=== PATIENT | female | born 1975 | race Caucasian/White ===

== ENCOUNTER 2016-10-09 09:12 | Day surgery (SDC) | payer BC ==
[~2016-10-09] VITALS: Ht 165.1 cm; Wt 61.5 kg
[2016-10-09] VITALS (19 sets, daily range): BP systolic 74–127; BP diastolic 57–76; PULSE 71–92; RESP 10–21; Ht 165.1 cm; Wt 61.5 kg
[~2016-10-09 09:12] MED LIST: EPHEDrine SULFATE 50 MG/5 ML SYG ONE
[2016-10-09 10:04] LABS: ADD SCAN DIFF NO
--- NOTE | 2016-10-09 10:05 | RADRPT ---
PROCEDURE: Chest x-ray CLINICAL INDICATION: Right breast neoplasm TECHNIQUE: Chest single view COMPARISON: None FINDINGS: The heart is normal in size. The pulmonary vessels are normal in caliber. The lungs are clear. Th e costophrenic angles are sharp. The visualized bony thorax is unremarkable. IMPRESSION: No acute cardiopulmonary disease. RPTAT: HH .Regan Berg MD, MD Date Time Electronically viewed and signed by .Regan Berg MD, on 10/09/2016 10:04 .W/
[2016-10-09 10:07] LABS: BASOPHILS % 0.3 % (0.0-2.0); EOSINOPHILS % 0.3 % (0.0-7.0); HEMATOCRIT 39.7 % (37.0-47.0); HEMOGLOBIN 13.4 g/dl (12.0-16.0); LYMPHOCYTES % 25.3 % (15.0-51.0); MEAN CORPUSCULAR HGB CONC 33.8 g/dl (32.0-37.0); MEAN PLATELET VOLUME 10.8 fl (7.4-10.4); MONOCYTE # 0.4 10^3/ul (0.3-0.9); MONOCYTES % 10.1 % (0.0-11.0); NEUTROPHIL # 2.5 10^3/ul (1.6-7.5); NEUTROPHILS % 63.7 % (39.0-77.0); PLATELET COUNT 226 10^3/UL (140-415); RED BLOOD COUNT 4.46 10^6/ul (4.20-5.40); RED CELL DISTRIBUTION WIDTH 13.1 % (11.5-14.5); WHITE BLOOD COUNT 3.9 10^3/ul (4.8-10.8)
[2016-10-09 10:19] LABS: ALBUMIN 4.1 g/dl (3.3-4.9)
[2016-10-09 10:21] LABS: INR 0.95; PROTIME 12.7 Sec (12.2-14.2)
[2016-10-09 10:22] LABS: ALBUMIN/GLOBULIN RATIO 1.51; BILIRUBIN,INDIRECT 0.4 mg/dl (0-1.1); BILIRUBIN,TOTAL 0.4 mg/dl (0.2-1.3); TOTAL PROTEIN 6.8 g/dl (6.1-8.1)
[2016-10-09 10:24] LABS: CALCIUM 8.6 mg/dl (8.4-10.2); CREATININE 0.7 mg/dl (0.44-1.00); POTASSIUM 3.8 mmol/L (3.5-5.1)
[2016-10-09] MEDS ORDERED: CEFAZOLIN 1 GM INJ ONE (12:02)
[2016-10-09] MEDS ORDERED: MIDAZOLAM 1 MG/ML 2 ML INJ ONE (12:02)
[2016-10-09] MEDS ORDERED: FENTAnyl 50 MCG/ML VIAL ONE ×2 (12:02→13:01)
[2016-10-09] MEDS ORDERED: PROPOFOL 20 ML ONE (12:02)
[2016-10-09] MEDS ORDERED: METOCLOPRAMIDE 10 MG INJ ONE (13:29)
[2016-10-09] MEDS ORDERED: KETOROLAC 30 MG INJ ONE (13:29)
[2016-10-09] MEDS ORDERED: DEXAMETHASONE 4 MG/ML 1 ML INJ ONE (13:29)
[2016-10-09] MEDS ORDERED: ONDANSETRON 4 MG INJ ONE (13:29)
[2016-10-09] MEDS ORDERED: MEPERIDINE 25 MG INJ IV PRN (13:30)
[2016-10-09] MEDS ORDERED: HYDROmorphONE (0.2 MG/ML) 10ML SYG IV PRN (13:30)
[2016-10-09] MEDS ORDERED: METOCLOPRAMIDE 10 MG INJ IV PRN (13:30)
[2016-10-09] MEDS ORDERED: ONDANSETRON 4 MG INJ IV PRN ×2 (13:30→19:00)
[2016-10-09] MEDS ORDERED: morphine (1 MG/ML) 10ML SYRINGE IV PRN ×3 (13:30)
[2016-10-09] MEDS ORDERED: DIPHENHYDRAMINE 50 MG INJ IV PRN ×2 (13:30→19:00)
[2016-10-09] MEDS ORDERED: LACTATED RINGER'S 1,000 ML IV ONE (14:19)
[2016-10-09] MEDS ORDERED: KETOROLAC 15 MG INJ IV PRN (14:30)
[2016-10-09] MEDS ORDERED: KETOROLAC 30 MG INJ IV PRN (14:30)
[2016-10-09] MEDS ORDERED: MAGNESIUM HYDROXIDE 30ML CUP PO PRN (14:30)
[2016-10-09] MEDS ORDERED: HYDROmorphONE (0.2 MG/ML) 10ML SYG IV ONE (14:40)
[2016-10-09] MEDS: HYDROmorphONE (0.2 MG/ML) 10ML SYG IV PRN ×4 (14:42→15:51)
[2016-10-09] MEDS ORDERED: CEFAZOLIN 1 GM/50 ML (PMX) 50 ML IVPB ONE ×2 (15:04→15:08)
[2016-10-09] MEDS: CEFAZOLIN 2 GM/50 ML (PMX) 50 ML IVPB SCH ×2 (15:10→23:11)
[2016-10-09] MEDS ORDERED: ACETAMINOPHEN 325 MG TAB PO PRN (19:00)
[2016-10-09] MEDS ORDERED: HYDROCODONE/APAP (5/325) TAB PO PRN (19:00)
[2016-10-09] MEDS ORDERED: IBUPROFEN 600 MG TAB PO PRN (19:00)
[2016-10-09] MEDS ORDERED: HYDROCODONE/APAP (10/325) TAB PO PRN (19:00)
--- NOTE | 2016-10-09 20:17 | HP ---
DATE OF ADMISSION: 10/09/2016 CHIEF COMPLAINT AND HISTORY OF PRESENT ILLNESS: The patient is a 41-year-old female with history of right-sided breast cancer initially diagnosed clinically in February 2016, and the patient was gabbi t into the hospital today and underwent a right partial mastectomy with right axillary dissection. The patient initially was diagnosed with 2 lumps in the right breast a few months ago and subsequent ly underwent mammogram and later on biopsy. Pathology was positive for cancer. The patient does craig ve postoperative pain and is being admitted for further evaluation and management. No reported head ache, dizziness, syncope. No history of sore throat. No history of fever or chills. No history of any urinary or bowel complaints other than postoperative chest wall pain. REVIEW OF SYSTEMS: The rest of review of systems are unremarkable. PAST SURGICAL HISTORY: None. ALLERGIES: NONE. SOCIAL HISTORY: No smoking, no alcohol. FAMILY HISTORY: History is positive for CA breast and thyroid cancer. MEDICATIONS PRIOR TO ADMISSION: None. PHYSICAL EXAMINATION: GENERAL: Revealed the patient to be conscious, awake, alert. VITAL SIGNS: Temperature 98.4, pulse ____, blood pressure 124/72, O2 saturation 99% on room air. HEENT: No eye discharge or redness. Oropharynx clear. NECK: No mass. CHEST: Fairly clear. CARDIOVASCULAR: S1, S2 normal, no murmur. ABDOMEN: Soft, nondistended, nontender. No palpable mass. EXTREMITIES: No leg edema. NEUROLOGIC: The patient is awake, alert, fairly oriented with no gross focal deficit. LABORATORY DATA: Done this morning, WBC 3.9, hemoglobin 13.4, platelets 226. Sodium 142, potassium 3.8, BUN 14, creatinine 0.7. Liver enzymes normal. IMPRESSION: Right breast cancer, status post right partial mastectomy and axillary dissection. PLAN: Patient admitted on medical floor. Patient will be started on IV Ancef as per protocol. Pat ient will be given IV fluids, Tylenol, [place], and morphine for pain control, depending upon severity . The patient will have SCDs for deep venous thrombosis prophylaxis. The patient will have followu p CBC tomorrow. The patient will be discharged home once cleared by Dr. Espinal. Dictated By: AJAY GROVER/BIRGIT Conf#: [id number] DID#: [id number]
[2016-10-09] MEDS: morphine 2 MG INJ IV PRN (20:39)
[2016-10-09] MEDS: DOCUSATE SODIUM 100 MG CAP PO SCH (21:33)
[2016-10-10 01:30] VITALS: BP 107/56; PULSE 74; RESP 18
[2016-10-10 04:56] LABS: ADD SCAN DIFF NO
[2016-10-10 05:02] LABS: BASOPHILS % 0.1 % (0.0-2.0); EOSINOPHILS % 0.3 % (0.0-7.0); HEMATOCRIT 36.9 % (37.0-47.0); LYMPHOCYTES # 1.2 10^3/ul (0.8-2.9); LYMPHOCYTES % 17.6 % (15.0-51.0); MEAN CORPUSCULAR HEMOGLOBIN 29.2 pg (29.0-33.0); MEAN CORPUSCULAR HGB CONC 32.5 g/dl (32.0-37.0); MEAN CORPUSCULAR VOLUME 89.8 fl (82.0-101.0); MONOCYTE # 0.9 10^3/ul (0.3-0.9); MONOCYTES % 12.7 % (0.0-11.0); NEUTROPHIL # 4.7 10^3/ul (1.6-7.5); NEUTROPHILS % 69.2 % (39.0-77.0); PLATELET COUNT 212 10^3/UL (140-415); RED BLOOD COUNT 4.11 10^6/ul (4.20-5.40); RED CELL DISTRIBUTION WIDTH 13.2 % (11.5-14.5); WHITE BLOOD COUNT 6.8 10^3/ul (4.8-10.8)
[2016-10-10 05:30] VITALS: BP 96/58; PULSE 72; RESP 18
[2016-10-10] MEDS: CEFAZOLIN 2 GM/50 ML (PMX) 50 ML IVPB SCH (06:35)
[2016-10-10] MEDS: morphine 2 MG INJ IV PRN ×2 (06:48→09:15)
[2016-10-10 08:14] VITALS: BP 102/64; RESP 20
[2016-10-10] MEDS ORDERED: HYDROmorphONE 1 MG/ML SYG IV STA (09:29)
[2016-10-10] MEDS: DOCUSATE SODIUM 100 MG CAP PO SCH ×2 (09:52→21:19)
[2016-10-10] MEDS ORDERED: HYDROmorphONE 1 MG/ML SYG IV PRN (10:00)
[2016-10-10] MEDS: HYDROmorphONE 1 MG/ML SYG IV PRN ×4 (12:56→22:23)
--- NOTE | 2016-10-10 13:25 | RADRPT ---
Vent Rate: 87 bpm RR Interval: 0 msec AR Interval: 156 msec QRS Duration: 86 msec QT Interval: 384 msec QTC Interval: 462 msec P-R-T [place]: 85 - 75 - 61 degrees Normal sinus rhythm Normal ECG No previous tracing available for comparison Electronically Signed By: Monty Reich [id number]
--- NOTE | 2016-10-10 14:16 | PN ---
Date/Time of Note Date/Time of Note DATE: 10/10/16 TIME: 14:12 Assessment/Plan VTE Prophylaxis VTE Prophylaxis Intervention: other Lines/Catheters IV Catheter Type (from Nrs): Peripheral IV Assessment/Plan Assessment/Plan Right breast cancer, status post right partial mastectomy and axillary dissection - per sx. SCDs for deep venous thrombosis prophylaxis.The patient will be discharged home once cleared by Dr. Espinal. Subjective 24 Hr Interval Summary Eyes: no complaints ENT: no complaints Respiratory: no complaints, other (sp right breat sx- inscional pain) Cardiovascular: no complaints Gastrointestinal: no complaints Genitourinary: no complaints Musculoskeletal: no complaints Skin: no complaints Neurologic: no complaints Endocrine: no complaints Lymphatic: no complaints Psychological: no complaints Immunologic: no complaints Exam/Review of Systems Vital Signs Vitals Vital Signs Date Time Temp Pulse Resp B/P Pulse Ox O2 Delivery O2 Flow Rate FiO2 10/10/16 08:14 98.8 72 20 102/64 99 10/10/16 05:30 Room Air 10/09/16 14:33 6.0 Intake and Output 10/09/16 10/09/16 10/10/16 14:59 22:59 06:59 Intake Total 1000 ml 950 ml Output Total 20 ml 28 ml 30 ml Balance 980 ml -28 ml 920 ml Exam Constitutional: alert, oriented, well developed Psych: nl mood/affect Eyes: EOMI, PERRL, nl sclera ENMT: nl external ears & nose Neck: non-tender Respiratory: clear to auscultation Cardiovascular: nl pulses Gastrointestinal: non-tender, soft Musculoskeletal: nl extremities to inspection Neurological: nl mental status, nl speech Skin: other (status post right partial mastectomy and axillary dissection) Lymph: nontender Results Result Diagram: 10/10/16 0438 10/09/16 0915 Results 24 hrs Laboratory Tests Test 10/10/16 04:38 White Blood Count 6.8 # Red Blood Count 4.11 L Hemoglobin 12.0 Hematocrit 36.9 L Mean Corpuscular Volume 89.8 Mean Corpuscular Hemoglobin 29.2 Mean Corpuscular Hemoglobin Concent 32.5 Red Cell Distribution Width 13.2 Platelet Count 212 Mean Platelet Volume 11.0 H Neutrophils % 69.2 Lymphocytes % 17.6 Monocytes % 12.7 H Eosinophils % 0.3 Basophils % 0.1 Nucleated Red Blood Cells % 0.0 Neutrophils # 4.7 Lymphocytes # 1.2 Monocytes # 0.9 Eosinophils # 0.0 Basophils # 0.0 Nucleated Red Blood Cells # 0.0 Medications Medications Current Medications Cefazolin Sodium/ Dextrose (Ancef 2 Gm/50 ml (Pmx)) 50 ml @ 100 mls/hr Q8H IVPB Last administered on 10/10/16 06:35; Admin Dose 100 MLS/HR; Start at 14:30; Stop 10/10/16 at 14:29 Acetaminophen/ Hydrocodone Bitart (Philipp (5/325)) 1 tab Q6H PRN PO PAIN LEVEL 6 -10 Last administered on 10/10/16 01:42; Admin Dose 1 TAB; Start 10/09/16 at 19 :00 Acetaminophen/ Hydrocodone Bitart ([place]ilipp (10/325)) 1 tab Q6H PRN PO PAIN; Start 10/09/16 at 19:00 Acetaminophen (Tylenol Tab) 650 mg Q6H PRN PO PAIN AND OR ELEVATED TEMP; Start 10/09/16 at 19:00 Ibuprofen (Motrin) 600 mg Q6H PRN PO PAIN LEVEL 1-5; Start 10/09/16 at 19:00 Diphenhydramine HCl (Benadryl) 25 mg Q6H PRN IV ITCHING; Start 10/09/16 at 19: 00 Ondansetron HCl (Zofran Inj) 4 mg Q6H PRN IV NAUSEA AND/OR VOMITING; Start at 19:00 Docusate Sodium (Colace) 100 mg BID PO Last administered on 10/10/16 09:52; Admin Dose 100 MG; Start 10/09/16 at 21:00 Magnesium Hydroxide (Milk Of Mag) 30 ml BID PRN PO CONSTIPATION; Start at 14:30 Hydromorphone HCl (Dilaudid) 0.5 mg Q3H PRN IV PAIN Last administered on 12:56; Admin Dose 0.5 MG; Start 10/10/16 at 11:14 PETE CARRINGTON Oct 10, 2016 14:16
--- NOTE | 2016-10-10 14:16 | PDOCDIS ---
Discharge Instructions HOME CARE INSTRUCTIONS: Diet Instructions: Regular ACTIVITY: Activity Restrictions: Slowly Increase Activity Rest between Activity Avoid heavy lifting Avoid Heavy Housework Bathing Restrictions: PETE York Oct 10, 2016 14:16
[2016-10-10] MEDS ORDERED: PANT40TA3 PO (14:18)
[2016-10-10] MEDS ORDERED: DOCU-216 PO (14:18)
[2016-10-10] MEDS ORDERED: HYDR-3498 PO (14:18)
--- NOTE | 2016-10-10 14:22 | DS ---
Date/Time of Note Date/Time of Note DATE: 10/10/16 TIME: 14:22 Discharge Summary Admission/Discharge Info Admit Date/Time Discharge Date/Time Patient Condition: Guarded Home Meds Active Scripts Pantoprazole* (Protonix*) 40 Mg Tablet.dr, 40 MG PO DAILY, #20 TAB Prov:[place] 10/10/16 Docusate Sodium (Dok) 100 Mg Capsule, 100 MG PO DAILY, #20 CAP Prov:PETE CARRINGTON 10/10/16 Hydrocodone Bit-Acetaminophen (Hydrocodone Bit-APAP) 5-325MG Tablet, 1 TAB PO Q6H Y for PAIN LEVEL 6-10, #20 TAB Prov:JEAN-PAULRUSLANPETE 10/10/16 Pending Labs Laboratory Tests Test 10/10/16 04:38 White Blood Count 6.810^3/ul (4.8-10.8) Red Blood Count 4.1110^6/ul (4.20-5.40) Hemoglobin 12.0g/dl (12.0-16.0) Hematocrit 36.9% (37.0-47.0) Mean Corpuscular Volume 89.8fl (82.0-101.0) Mean Corpuscular Hemoglobin 29.2pg (29.0-33.0) Mean Corpuscular Hemoglobin Concent 32.5g/dl (32.0-37.0) Red Cell Distribution Width 13.2% (11.5-14.5) Platelet Count 64867^3/UL (140-415) Mean Platelet Volume 11.0fl (7.4-10.4) Neutrophils % 69.2% (39.0-77.0) Lymphocytes % 17.6% (15.0-51.0) Monocytes % 12.7% (0.0-11.0) Eosinophils % 0.3% (0.0-7.0) Basophils % 0.1% (0.0-2.0) Nucleated Red Blood Cells % 0.0/100WBC (0.0-0.0) Neutrophils # 4.710^3/ul (1.6-7.5) Lymphocytes # 1.210^3/ul (0.8-2.9) Monocytes # 0.910^3/ul (0.3-0.9) Eosinophils # 0.010^3/ul (0.0-0.5) Basophils # 0.010^3/ul (0.0-0.1) Nucleated Red Blood Cells # 0.010^3/ul (0.0-0.0) PETE CARRINGTON Oct 10, 2016 14:22
[2016-10-10] MEDS: KETOROLAC 30 MG INJ IV SCH ×2 (15:30→21:23)
--- NOTE | 2016-10-10 16:28 | PN ---
DATE: 10/10/2016 SUBJECTIVE: Complains of too much pain. It has been difficult to control her pain. Eventually we had to use Dilaudid and Toradol and oral pain medication. [place] has not been effective. OBJECTIVE: VITAL SIGNS: Temperature 98.8, pulse 72, respiratory rate 20, blood pressure 102/64, saturation 99% on room air. LABORATORY DATA: WBC 6800 with 69% segmented, hemoglobin 12, hematocrit 36.9. Sabino-Mares serosanguineous drainage 20 mL since 6:00 morning today, now it is about 10 hours since operation . ASSESSMENT: Postop partial mastectomy with axillary dissection. The tumor was very close and attached to the muscle of the chest wall, so a little bit of muscle has been removed too, that can explain too much pain on the patient. PLAN: Continue antibiotics. Continue pain medication. Try to start patient on oxycodone. See if we can control it with p.o. medication. The patient will stay 1 more night. Hopefully by Wednesday, tomorrow morning, we can discharge the patient home. Dictated By: KORINA HOWELL MD PS/BIRGIT Conf#: [id number] DID#: [id number] MTDD
[2016-10-10 19:20] VITALS: BP 116/66; PULSE 76; RESP 18
--- NOTE | 2016-10-10 20:38 | CONS ---
Date/Time of Note Date/Time of Note DATE: 10/10/16 TIME: 12:38 Assessment/Plan Assessment/Plan Chief Complaint/Hosp Course ASSESSMENT: Postop partial mastectomy with axillary dissection. The tumor was very closed and attached to the muscle of the chest wall, so a little bit of muscle has been removed too, that can explain too much pain on the patient. CONT POSTOP CARE AWAIT PATH F-UP POST DC Problems: Consultation Date/Type/Reason Admit Date/Time Initial Consult Date 10.10.16 Type of Consultation: HEMEONC Reason for Consultation BREAST CANCER Referring Provider: AJAY HINSON MD 24 HR Interval Summary Free Text/Dictation ALL NOTED POST OP + PAIN Exam/Review of Systems Vital Signs Vitals Vital Signs Date Time Temp Pulse Resp B/P Pulse Ox O2 Delivery O2 Flow Rate FiO2 10/10/16 08:14 98.8 72 20 102/64 99 10/10/16 05:30 Room Air 10/09/16 14:33 6.0 Intake and Output 10/09/16 10/09/16 10/10/16 15:00 23:00 07:00 Intake Total 1000 ml 950 ml Output Total 20 ml 28 ml 30 ml Balance 980 ml -28 ml 920 ml Exam Constitutional: alert, oriented, well developed Psych: nl mood/affect Eyes: EOMI, PERRL, nl sclera ENMT: nl external ears & nose Neck: non-tender Respiratory: clear to auscultation Cardiovascular: nl pulses Gastrointestinal: non-tender, soft Musculoskeletal: nl extremities to inspection Neurological: nl mental status, nl speech Skin: other (status post right partial mastectomy and axillary dissection) Lymph: nontender Results Result Diagram: 10/10/16 0438 10/09/16 0915 Results 24 hrs Laboratory Tests Test 10/10/16 04:38 White Blood Count 6.8 # Red Blood Count 4.11 L Hemoglobin 12.0 Hematocrit 36.9 L Mean Corpuscular Volume 89.8 Mean Corpuscular Hemoglobin 29.2 Mean Corpuscular Hemoglobin Concent 32.5 Red Cell Distribution Width 13.2 Platelet Count 212 Mean Platelet Volume 11.0 H Neutrophils % 69.2 Lymphocytes % 17.6 Monocytes % 12.7 H Eosinophils % 0.3 Basophils % 0.1 Nucleated Red Blood Cells % 0.0 Neutrophils # 4.7 Lymphocytes # 1.2 Monocytes # 0.9 Eosinophils # 0.0 Basophils # 0.0 Nucleated Red Blood Cells # 0.0 Medications Medications Current Medications Acetaminophen (Tylenol Tab) 650 mg Q6H PRN PO PAIN AND OR ELEVATED TEMP; Start 10/09/16 at 19:00 Ibuprofen (Motrin) 600 mg Q6H PRN PO PAIN LEVEL 1-5; Start 10/09/16 at 19:00 Diphenhydramine HCl (Benadryl) 25 mg Q6H PRN IV ITCHING Last administered on 17:45; Admin Dose 25 MG; Start 10/09/16 at 19:00 Ondansetron HCl (Zofran Inj) 4 mg Q6H PRN IV NAUSEA AND/OR VOMITING; Start at 19:00 Docusate Sodium (Colace) 100 mg BID PO Last administered on 10/10/16 09:52; Admin Dose 100 MG; Start 10/09/16 at 21:00 Magnesium Hydroxide (Milk Of Mag) 30 ml BID PRN PO CONSTIPATION; Start at 14:30 Hydromorphone HCl (Dilaudid) 0.5 mg Q3H PRN IV PAIN Last administered on 19:13; Admin Dose 0.5 MG; Start 10/10/16 at 11:14 Ketorolac Tromethamine (Toradol) 30 mg Q6H IV ; Start 10/10/16 at 15:30; Stop at 15:29 Magnesium Hydroxide (Milk Of Mag) 30 ml QHS PRN PO CONSTIPATION; Start at 21:00 TASHA HECK MD Oct 10, 2016 20:38
--- NOTE | 2016-10-10 20:38 | CONS ---
Date/Time of Note Date/Time of Note DATE: 10/09/16 TIME: 20:37 vk le Assessment/Plan Assessment/Plan Chief Complaint/Hosp Course IMPRESSION: Right breast cancer, status post right partial mastectomy and axillary dissection. PLAN: Patient admitted on medical floor. Patient will be started on IV Ancef as per protocol. Patient will be given IV fluids, Tylenol, [place], and morphine for pain control, depending upon severity. The patient will have SCDs for deep venous thrombosis prophylaxis. PAIN CONTROL AWAIT PATH DECIDE RE TREATMENT AFTER FINAL PATH BACK Problems: Consultation Date/Type/Reason Admit Date/Time 10.09.16 Date of Consultation: Oct 09, 2016 Type of Consultation: hemeon Reason for Consultation breast cancer Referring Provider: KORINA HOWELL MD Hx of Present Illness The patient is a 41-year-old female with history of right-sided breast cancer initially diagnosed clinically in February 2016, and the patient was brought into the hospital today and underwent a right partial mastectomy with right axillary dissection. The patient initially was diagnosed with 2 lumps in the right breast a few months ago and subsequently underwent mammogram and later on biopsy. Pathology was positive for cancer. The patient does have postoperative pain and is being admitted for further evaluation and management. No reported headache, dizziness, syncope. No history of sore throat. No history of fever or chills. No history of any urinary or bowel complaints other than postoperative chest wall pain. REVIEW OF SYSTEMS: The rest of review of systems are unremarkable. PAST SURGICAL HISTORY: None. ALLERGIES: NONE. SOCIAL HISTORY: No smoking, no alcohol. FAMILY HISTORY: History is positive for CA breast and thyroid cancer. MEDICATIONS PRIOR TO ADMISSION: None. Eyes: no complaints ENT: no complaints Respiratory: no complaints, other (sp right breat sx- inscional pain) Cardiovascular: no complaints Gastrointestinal: no complaints Genitourinary: no complaints Musculoskeletal: no complaints Skin: no complaints Neurologic: no complaints Endocrine: no complaints Lymphatic: no complaints Psychological: nl mood/affect Immunologic: no complaints Social History Smoking Status: Never smoker Exam/Review of Systems Vital Signs Vitals VSS Exam Constitutional: alert, oriented, well developed Psych: nl mood/affect Eyes: EOMI, PERRL, nl sclera ENMT: nl external ears & nose Neck: non-tender Respiratory: clear to auscultation Cardiovascular: nl pulses Gastrointestinal: non-tender, soft Musculoskeletal: nl extremities to inspection Neurological: nl mental status, nl speech Skin: other (status post right partial mastectomy and axillary dissection) Lymph: nontender Results LABORATORY DATA: Done this morning, WBC 3.9, hemoglobin 13.4, platelets 226. Sodium 142, potassium 3.8, BUN 14, creatinine 0.7. Liver enzymes normal. Result Diagram: 10/10/16 0438 10/09/16 0915 Results 24 hrs Laboratory Tests Test 10/10/16 04:38 White Blood Count 6.8 # Red Blood Count 4.11 L Hemoglobin 12.0 Hematocrit 36.9 L Mean Corpuscular Volume 89.8 Mean Corpuscular Hemoglobin 29.2 Mean Corpuscular Hemoglobin Concent 32.5 Red Cell Distribution Width 13.2 Platelet Count 212 Mean Platelet Volume 11.0 H Neutrophils % 69.2 Lymphocytes % 17.6 Monocytes % 12.7 H Eosinophils % 0.3 Basophils % 0.1 Nucleated Red Blood Cells % 0.0 Neutrophils # 4.7 Lymphocytes # 1.2 Monocytes # 0.9 Eosinophils # 0.0 Basophils # 0.0 Nucleated Red Blood Cells # 0.0 Medications Medications Current Medications Acetaminophen (Tylenol Tab) 650 mg Q6H PRN PO PAIN AND OR ELEVATED TEMP; Start 10/09/16 at 19:00 Ibuprofen (Motrin) 600 mg Q6H PRN PO PAIN LEVEL 1-5; Start 10/09/16 at 19:00 Diphenhydramine HCl (Benadryl) 25 mg Q6H PRN IV ITCHING Last administered on 17:45; Admin Dose 25 MG; Start 10/09/16 at 19:00 Ondansetron HCl (Zofran Inj) 4 mg Q6H PRN IV NAUSEA AND/OR VOMITING; Start at 19:00 Docusate Sodium (Colace) 100 mg BID PO Last administered on 10/10/16 09:52; Admin Dose 100 MG; Start 10/09/16 at 21:00 Magnesium Hydroxide (Milk Of Mag) 30 ml BID PRN PO CONSTIPATION; Start at 14:30 Hydromorphone HCl (Dilaudid) 0.5 mg Q3H PRN IV PAIN Last administered on 19:13; Admin Dose 0.5 MG; Start 10/10/16 at 11:14 Ketorolac Tromethamine (Toradol) 30 mg Q6H IV ; Start 10/10/16 at 15:30; Stop at 15:29 Magnesium Hydroxide (Milk Of Mag) 30 ml QHS PRN PO CONSTIPATION; Start at 21:00 TASHA HECK MD Oct 10, 2016 20:38
[2016-10-10] MEDS ORDERED: MAGNESIUM HYDROXIDE 30ML CUP PO PRN (21:00)
--- NOTE | 2016-10-11 03:37 | OPR ---
DATE OF OPERATION: 10/09/2016 SURGEON: Addison Howell MD SECURITY TEAM LEAD: Sesar Sutton MD ANESTHESIA: General. ANESTHESIOLOGIST: Dr. Gerber ANESTHESIA: General. ESTIMATED BLOOD LOSS: 30 mL POSTOPERATIVE DIAGNOSES: Invasive cancer of the right breast at 6 o'clock position at inframammary fold area and also positive axillary lymph node metastasis. POSTOPERATIVE DIAGNOSES: Invasive cancer of the right breast at 6 o'clock position at inframammary fold area and also positive axillary lymph node metastasis. OPERATION PERFORMED: 1. Partial mastectomy on the right side. 2. Axillary dissection, right axillary area. 3. Removal of the intraparenchymal lymph node from right breast tail. INDICATION: This is a 41-year-old unfortunate woman who presented to my office with a diagnosis of invasive cancer of the right breast with positive lymph node pathology in June 2016. She was wa iting for the results of the MRI, and then we discussed every aspect of the treatment and tried to p prince for booking the patient. The patient was supposed to come back to the office, but she never oleg wed up, and we found out that she has lost insurance and she was looking for another insurance. Elsie ntually, about 10 days ago, she showed back to my office, and at this time, we immediately decided t o proceed with procedure as she had insurance ____ at this time and she wanted the operation. We di scussed the alternative of treatment, the partial mastectomy and axillary dissection versus modified radical mastectomy, and I suggested the patient partial mastectomy and axillary dissection followed by radiation because, in any case, the lymph nodes were positive and the original tumor was very cl ose to the chest wall. We assume that the patient most probably will require radiation to the axill a and probably to the chest wall after operation; therefore, better to have a partial mastectomy and breast conservation than modified radical mastectomy due to the modified would be very technically difficult because of the position of the original tumor which was at 6 o'clock position at the infra mammary fold. Meanwhile, I got a consultation from my colleague, Dr. Sesar Sutton, and he agreed wi th the procedure. He also recommended partial mastectomy with axillary dissection. The patient agr eed with the procedure, signed consent, and wanted the operation to proceed. DESCRIPTION OF PROCEDURE: The patient was brought to the operating room, placed on the operating ro om table in supine position. Anesthesia was induced by the anesthesiologist; 2 grams of Ancef was g iven IV. The right chest wall and breast and axillary and arm was prepped with Betadine and draped in a sterile fashion. Time-out was called. The patient was identified. The site of operation and type of operation was discussed among the team. Then first attention was paid toward removing the m ain part of the tumor, namely the tumor at 6 o'clock position. An axial longitudinal skin incision was made, kind of an elliptical, encompassing about 1.5 cm of skin which all appeared to be attached to this anterior surface of the tumor, and then it was carried down and skin flaps medially and lat erally were developed, using electrocautery all the time after the skin incision of course made by s harp knife. Then eventually the whole tumor with what appeared to be extra tissue as a margin was e xcised completely. Pathologist was called in, and it was delivered to the pathologist as specimen f or ____. Then the wound was thoroughly irrigated, hemostasis achieved, and then it was closed in 2 layers, deep layer deep dermal with interrupted 4-0 Vicryl, and the skin was closed with 5-0 PDS con tinuous subcuticular fashion. Dermabond dressing was applied over the wound. Then, attention was p aid toward the right axilla. A 4 cm incision at the hairline area on the right axillary was made, c arried down through subcutaneous tissue, and then subcutaneous tissue was dissected with cautery jacey n through the clavipectoral fascia. We noticed several lymph nodes consistent with the MRI findings which were suspicious for positive. With blunt dissection along the chest wall on the right side, long thoracic nerve was identified and kept out of harm's way. Then, more superficial, the dissecti on continued toward the axillary vein, and axillary vein and thoracodorsal neurovascular bundle was identified and was dissected and kept out of harm's way. The LigaSure device was used for dividing the tissues. Then node bearing tissues between thoracic nerve and thoracodorsal nerve were meticulo usly harvested using the LigaSure device, and eventually a specimen was transected and was sent for pathologic evaluation. Several lymph nodes, very suspicious, were in the tissues. Wound was irriga enrico, hemostasis completely achieved. At this time, we inspected the wound and palpated the tail of the breast again because, before the operation, we could see the lymph node which was little bit low er than the axillary line, and that was suspicious of being in the parenchymal tissue. We eventuall y found this one at the tail of the breast, and this was completely removed and was sent separately for pathologic evaluation as an intraparenchymal tissue. Then the wound was thoroughly irrigated an d hemostasis was complete. Then, making a skin incision at the right mid axillary line with a knife , a Sabino-Mares drain was placed into the axillary wound and cut to size and placed there inside t he axilla. The tubing was anchored to the skin with 2-0 nylon. Then, the axillary incision was hardik sed with #4-0 Vicryl continuous in subcuticular fashion. Dermabond dressing was applied on top of i t. The tubings of the Sabino-Mares was connected to the bulb, all the remaining fluid was evacuate d, and there was good seal of the wound. Then, Telfa was applied over the wound and bulky dressing was applied and taped to the skin. The patient tolerated procedure well. Sponge, needle, and instr ument count reported to be correct x2. ESTIMATED BLOOD LOSS: 30 mL SPECIMEN: Consist of 3-part: 1. Axillary content. 2. Right breast partial mastectomy. 3. Intraparenchymal tissue, possibly intraparenchymal lymph node with metastasis. The patient was extubated and transferred to recovery room in stable condition. Dictated By: ADDISON HOWELL MD PS/NTS Conf#: [id number] DID#: [id number] CC: SESAR SUTTON MD; TASHA HECK MD;*EndCC*
[2016-10-11] MEDS: KETOROLAC 30 MG INJ IV SCH ×3 (03:59→16:46)
[2016-10-11 05:01] LABS: ADD SCAN DIFF NO
[2016-10-11 05:14] LABS: BASOPHILS % 0.3 % (0.0-2.0); EOSINOPHILS # 0.1 10^3/ul (0.0-0.5); EOSINOPHILS % 1.5 % (0.0-7.0); HEMATOCRIT 34.8 % (37.0-47.0); HEMOGLOBIN 11.4 g/dl (12.0-16.0); LYMPHOCYTES # 1.4 10^3/ul (0.8-2.9); LYMPHOCYTES % 35.9 % (15.0-51.0); MEAN CORPUSCULAR HEMOGLOBIN 29.8 pg (29.0-33.0); MEAN CORPUSCULAR HGB CONC 32.8 g/dl (32.0-37.0); MEAN CORPUSCULAR VOLUME 91.1 fl (82.0-101.0); MEAN PLATELET VOLUME 10.9 fl (7.4-10.4); MONOCYTE # 0.5 10^3/ul (0.3-0.9); MONOCYTES % 13.7 % (0.0-11.0); NEUTROPHIL # 1.9 10^3/ul (1.6-7.5); NEUTROPHILS % 48.3 % (39.0-77.0); PLATELET COUNT 203 10^3/UL (140-415); RED BLOOD COUNT 3.82 10^6/ul (4.20-5.40); RED CELL DISTRIBUTION WIDTH 13.5 % (11.5-14.5); WHITE BLOOD COUNT 3.9 10^3/ul (4.8-10.8)
[2016-10-11 05:16] LABS: POTASSIUM 3.9 mmol/L (3.5-5.1)
[2016-10-11 05:19] LABS: CREATININE 0.65 mg/dl (0.44-1.00)
[2016-10-11 05:20] LABS: CALCIUM 7.8 mg/dl (8.4-10.2)
[2016-10-11 07:28] VITALS: BP 99/63; RESP 18
[2016-10-11] MEDS: HYDROmorphONE 1 MG/ML SYG IV PRN ×4 (07:50→17:57)
[2016-10-11] MEDS: DOCUSATE SODIUM 100 MG CAP PO SCH (14:58)
--- NOTE | 2016-10-11 15:34 | PN ---
Date/Time of Note Date/Time of Note DATE: 10/11/16 TIME: 15:32 Assessment/Plan VTE Prophylaxis VTE Prophylaxis Intervention: SCD's Lines/Catheters IV Catheter Type (from Nrs): Saline Lock Assessment/Plan Assessment/Plan 1. Right breast cancer, status post right partial mastectomy and axillary dissection - per sx. 2. SCDs for deep venous thrombosis prophylaxis. The patient will be discharged home once cleared by Dr. Espinal. NICOLLE Dillon Subjective 24 Hr Interval Summary Constitutional: improved Eyes: no complaints ENT: no complaints Respiratory: no complaints Cardiovascular: no complaints Gastrointestinal: no complaints Genitourinary: no complaints Musculoskeletal: no complaints Skin: other (right breast pain) Neurologic: no complaints Endocrine: no complaints Lymphatic: no complaints Psychological: no complaints Immunologic: no complaints Exam/Review of Systems Vital Signs Vitals Vital Signs Date Time Temp Pulse Resp B/P Pulse Ox O2 Delivery O2 Flow Rate FiO2 10/11/16 07:28 98.3 70 18 99/63 98 10/10/16 19:20 Room Air 10/09/16 14:33 6.0 Intake and Output 10/10/16 10/10/16 10/11/16 15:00 23:00 07:00 Intake Total 50 ml 800 ml 850 ml Output Total 40 ml 905 ml Balance 50 ml 760 ml -55 ml Results Result Diagram: 10/11/16 0433 10/11/16 0433 Results 24 hrs Laboratory Tests Test 10/11/16 04:33 White Blood Count 3.9 #L Red Blood Count 3.82 L Hemoglobin 11.4 L Hematocrit 34.8 L Mean Corpuscular Volume 91.1 Mean Corpuscular Hemoglobin 29.8 Mean Corpuscular Hemoglobin Concent 32.8 Red Cell Distribution Width 13.5 Platelet Count 203 Mean Platelet Volume 10.9 H Neutrophils % 48.3 Lymphocytes % 35.9 Monocytes % 13.7 H Eosinophils % 1.5 Basophils % 0.3 Nucleated Red Blood Cells % 0.0 Neutrophils # 1.9 Lymphocytes # 1.4 Monocytes # 0.5 Eosinophils # 0.1 Basophils # 0.0 Nucleated Red Blood Cells # 0.0 Sodium Level 135 Potassium Level 3.9 Chloride Level 105 Carbon Dioxide Level 27 Anion Gap 7 #L Blood Urea Nitrogen 13 Creatinine 0.65 Glucose Level 98 Calcium Level 7.8 L Medications Medications Current Medications Acetaminophen (Tylenol Tab) 650 mg Q6H PRN PO PAIN AND OR ELEVATED TEMP; Start 10/09/16 at 19:00 Ibuprofen (Motrin) 600 mg Q6H PRN PO PAIN LEVEL 1-5; Start 10/09/16 at 19:00 Diphenhydramine HCl (Benadryl) 25 mg Q6H PRN IV ITCHING Last administered on 17:45; Admin Dose 25 MG; Start 10/09/16 at 19:00 Ondansetron HCl (Zofran Inj) 4 mg Q6H PRN IV NAUSEA AND/OR VOMITING; Start at 19:00 Docusate Sodium (Colace) 100 mg BID PO Last administered on 10/11/16 14:58; Admin Dose 100 MG; Start 10/09/16 at 21:00 Magnesium Hydroxide (Milk Of Mag) 30 ml BID PRN PO CONSTIPATION; Start at 14:30 Hydromorphone HCl (Dilaudid) 0.5 mg Q3H PRN IV PAIN Last administered on 14:51; Admin Dose 0.5 MG; Start 10/10/16 at 11:14 Ketorolac Tromethamine (Toradol) 30 mg Q6H IV Last administered on 10/11/16 03 :59; Admin Dose 30 MG; Start 10/10/16 at 15:30; Stop 10/13/16 at 15:29 Magnesium Hydroxide (Milk Of Mag) 30 ml QHS PRN PO CONSTIPATION; Start at 21:00 PETE CARRINGTON Oct 11, 2016 15:34
--- NOTE | 2016-10-11 17:53 | PN ---
DATE: 10/11/2016 Postop day number 2. SUBJECTIVE: Feels much better. Has been nauseous in the morning, but now is not. Tolerated diet, has been passing gas, no chills, no fever. OBJECTIVE VITAL SIGNS: Temperature 98.3, pulse rate 70, respirations 18, blood pressure 99/63, saturation 98% on room air. ABDOMEN: Soft. EXTREMITIES: She moves the right upper extremity easily. Capillary filling in toes and fingers are normal. LABORATORIES: Today, WBC 3900 with 48% segmented and hemoglobin 11.4 and hematocrit 34.4. ASSESSMENT AND PLAN: The patient is post partial mastectomy on the right side with axillary dissection because of the invasive cancer and positive lymph nodes. The patient is doing fine. Sabino-Mares drain is serosanguineous, 20 mL since 6:00 in the morning until 4:000 in the afternoon. PLAN: The patient can be discharged home with pain medication and instructions to take care of the Sabino-Mares, to be followed by me in my office on Wednesday. Dictated By: KORINA ESTRADA/BIRGIT Conf#: [id number] DID#: [id number] MTDD
== END 2016-10-11 18:50 | disposition home or self-care (01) ==
LOC: SDS 09:12 → MS1 15:50 → SDS 10-11 18:50
PROVIDERS: ATTEND Internal Medicine
DX: C50.911 Malignant neoplasm of unspecified site of right female breast (principal); Z17.0 Estrogen receptor positive status [ER+]; C77.3 Secondary and unspecified malignant neoplasm of axilla and upper limb lymph nodes; Z80.3 Family history of malignant neoplasm of breast; Z80.8 Family history of malignant neoplasm of other organs or systems
CPT/HCPCS: 19302; 71010; 80048; 80053; 85025; 85610; 85730; 88307; 93005; J0690; J1100; J1170; J1200; J1885; J2250; J2270; J2405; J2765; J3010; Z7512; Z7610